=== PATIENT | female | born 1945 | race Caucasian/White ===

== ENCOUNTER 2024-06-01 17:07 | Emergency (ER) | payer MEDICARE, OTHER, SELFPAY ==
[2024-06-01 17:11] VITALS: BP 133/65
[2024-06-01 17:30] LABS: % Basophils 0.6 % (0-2); % Eosinophils 0.3 % (0-6); % Immature Granulocytes 0.3 % (0-0.5); % Monocytes 9.4 % (1.7-9.3); % Neutrophils 71.4 % (42.2-75.2); Absolute Lymphocytes 1.2 10^3/uL (1.2-3.4); Absolute Monocytes 0.6 10^3/uL (0.1-0.6); Absolute Neutrophils 4.8 10^3/uL (1.4-6.5); Hematocrit 40.5 % (37.0-47.0); Hemoglobin 13.8 g/dL (12.0-16.0); Mean Corp Hgb Conc. 34.1 g/dL (33.0-37.0); Mean Corpuscular Hgb 32.1 pg (27.0-31.0); Mean Corpuscular Volume 94.2 fL (81.0-99.0); Mean Platelet Volume 9.8 fL (7.4-10.4); Nucleated Red Blood Cells % 0 %; Platelet Count 219 10^3/uL (130-400); Red Cell Dist. Width 12.4 % (11.5-14.5); White Blood Cell Count 6.8 10^3/uL (4.8-10.8)
[2024-06-01 17:38] LABS: INR 0.99; PT 13.4 Sec (11.4-14.6)
[2024-06-01 17:43] LABS: ALT (SGPT) 20 U/L (0-35); AST (SGOT) 27 U/L (14-36); Albumin 4.3 g/dl (3.5-5.0); Alkaline Phosphatase 67 U/L (38-126); Blood Urea Nitrogen 23 mg/dl (7-17); Calcium 9.6 mg/dl (8.4-10.2); Carbon Dioxide 28 mmol/L (22-30); Chloride 103 mmol/L (98-107); Glucose 153 mg/dl (70-99); Sodium 139 mmol/L (135-145); Total Bilirubin 0.7 mg/dl (0.2-1.3); eGFR > 60.00
[2024-06-01 17:55] LABS: Troponin I < 0.012 ng/ml
[2024-06-01 18:00] VITALS: BP 97/73
[2024-06-01 18:13] LABS: TSH 1.22 uIU/ml (0.47-4.68)
[2024-06-01 19:00] VITALS: BP 115/66
[2024-06-01 20:09] LABS: NT-proBNP 81.4 pg/ml
[2024-06-01 20:29] VITALS: BP 119/67
--- NOTE | 2024-06-01 20:53 | ED.GENMED ---
History of Present Illness
General
Chief Complaint: Swelling
Source: senior living
Exam Limitations: none
Time Seen by Provider: 06/01/24 18:45
Nursing documentation reviewed up to this point in time: agreed with
History of Present Illness
History of Present Illness:
Patient to ED for evaluation of swelling to BLE. Symptoms started last week. Brought to ED via EMS for eval. No kknown history of trauma. No reported history of same.
Past History
Past History
ED Past Medical History: GERD and Other (Abdominoplasty,)
ED Past Surgical History: and Orthopedic (Spinal fusion for scoliosis)
Social History
Tobacco: Non-smoker
Alcohol: Occasional
Drug: None
Personal:
Living: with family
Employment: Employed
Family History
Family History: Negative Early CAD
Review of Systems
Review of Systems
Allergies reviewed?: Yes
All Other Systems: ROS reviewed and negative except as documented in HPI and ROS
Constitutional: Reports no symptoms
EENT: Reports no symptoms
Respiratory: Reports no symptoms
Cardiac: Reports no symptoms
ABD/GI: Reports no symptoms
: Reports no symptoms
Musculoskeletal: Reports edema (+2 edema BLE below knees to toes)
Skin: Reports no symptoms
Neurological: Reports no symptoms
Psychiatric: Reports no symptoms
Phy Exam
General Physical Exam
General Presentation: well appearing and no apparent distress
General age: appears stated age
General Skin: warm and dry
General Habitus: normal
General Mental: alert
Cardiovascular Exam
Cardiovascular Exam: regular rate/rhythm
Pulmonary Exam
Pulmonary Exam: lungs clear and no respiratory distress
Gastrointestinal Exam
Gastrointestinal Exam: non tender and soft
Musculoskeletal Exam
Musculoskeletal Exam: full ROM, neuro vasc intact and other (Swelling to BLE. No s/s infection. Neurovasc intact)
Skin Exam
Skin Exam: normal color, warm/dry and no rash
Psychiatric Exam
Psychiatric Exam: normal mood/affect
Scores
Heart Failure Risk
Heart Failure Risk Score: Not Applicable
Course
Orders/Labs/Results
Orders:
Orders
06/01/24 17:14
ECG [Electrocardiogram (*1)] Urgent
Reason for Study: Tachycardia
EKG- Treatment ONCE
06/01/24 17:22
Complete Blood Count/With Diff Urgent
Comprehensive Metabolic Panel Urgent
NT-proBNP Urgent
Comment: ADD ON
PT/INR [Prothrombin Time] Urgent
PTT Urgent
TSH Urgent
Troponin I Urgent
06/01/24 19:17
Add On- LAB Urgent
Tests Added?: BNP
06/01/24 19:18
US Periph Venous LOWER Ext Suhail Urgent
Comment:
Reason For Exam: swelling, erythema
06/01/24 20:59
Apixaban [Eliquis] 10 mg PO NOW STA
Abnormal Lab Results
06/01/24
17:22
MCH 32.1 H pg
(27.0-31.0)
Lymphocytes % 18.0 L %
(20.5-51.1)
Monocytes % 9.4 H %
(1.7-9.3)
BUN 23 H mg/dl
(7-17)
Glucose 153 H mg/dl
(70-99)
06/01/24 17:22
06/01/24 17:22
Vital Signs
Initial and Last Documented VS:
Initial Vital Signs
Temp Pulse Resp BP Pulse Ox
97.8 F 120 18 133/65 95
06/01/24 17:11 06/01/24 17:11 06/01/24 17:11 06/01/24 17:11 06/01/24 17:11
Last Documented Vital Signs
Temp Pulse Resp BP Pulse Ox
97.8 F 102 14 111/54 96
06/01/24 17:11 06/01/24 21:00 06/01/24 21:00 06/01/24 21:00 06/01/24 21:00
*Radiology
Radiology exam reviewed: radiology read reviewed
*Pulse Oximetry
Patient hypoxic: no
*Critical Care Note
Total Time (30-74mins, 75-104mins- exclusive of procedures): Not Applicable
Update Note
Update Note:
Patient to ED for eval of BLE swelling. US reveals occlusive DVT left popliteal. No DVT on right. Labs reviewed. Started on Eliquis in ED. Will discharge back to facility, close follow up with PCP. Discussed patient presentation and findings
with her son by phone. He is agreeable to plan. VSS, no respiratory concerns.
ED Attending Note
-
Portions of this chart may have been created with voice recognition software.� Occasional wrong word or��sound alike� substitutions may have occurred due to the inherent limitations of voice recognition software.
Discharge Plan
Departure
Patient Disposition: Home (Routine Discharge)
Date of Disposition: 06/01/24
Time of Disposition: 21:01
Patient with high blood pressure during this ER visit?: No
Condition: Good
Covid-19: Not Applicable
Discharge Problem:
DVT (deep venous thrombosis)
Instructions: Deep vein thrombosis - Discharge instructions
Prescriptions:
New
Eliquis DVT-PE Treat 30D Start 5 mg (74 tabs) tablets,dose pack
See Rx Instructions .ROUTE .COMPLEX Qty: 74 0RF
Rx Instructions:
orally per package directions
No Action
duloxetine 30 MG capsule,delayed release(DR/EC)
30 mg PO HS
progesterone micronized [Prometrium] 100 MG capsule
100 mg PO DAILY
oxycodone 5 MG tablet
5 mg PO BID
Estradiol
0.05 mg topical SUWE
pantoprazole 40 MG tablet,delayed release (DR/EC)
40 mg PO DAILY Qty: 10 0RF
Referrals:
Mar Wells, DO [Family Provider] - Tomorrow
Interventions
Interventions:
*Risk Screen - Suicide Last Done: 06/01/24 17:11
*General Assessment Last Done: 06/01/24 17:11
*Neglect/Abuse Screening Last Done: 06/01/24 17:11
*ED- Fall Risk Assessment Last Done: 06/01/24 21:17
*ED COVID-19 Vaccine History Last Done: 06/01/24 21:17
*Nursing Disposition Last Done: 06/01/24 22:25
ED- Cardiac Assessment Last Done: 06/01/24 17:11
ED- Pulmonary Assessment Last Done: 06/01/24 17:11
ED-Skin Assessment Last Done: 06/01/24 17:11
Discharge Date and Time
Discharge Date/Time: 06/01/24 22:28
Print Language: YI
[2024-06-01 21:00] VITALS: BP 111/54
[2024-06-01] MEDS: ELIQUIS 10 MG PO (21:08)
== END 2024-06-01 22:28 | disposition home or self-care (01) ==
LOC: EMR 17:07
PROVIDERS: EMERGENCY PHYSICIAN Emergency Medicine; FAMILY PHYSICIAN Hospitalist
DX: I82.432 Acute embolism and thrombosis of left popliteal vein (principal)
CPT/HCPCS: 99285; 80053; 83880; 84443; 84484; 85025; 85610; 85730; 93005; 93970

== ENCOUNTER 2024-06-05 11:07 | Inpatient (IN) | payer MEDICARE, OTHER, SELFPAY ==
[2024-06-04] VITALS (15 sets, daily range): BP systolic 97–130; BP diastolic 59–78; PULSE 86; O2SAT 97
--- NOTE | 2024-06-04 04:20 | ED.GENMED ---
History of Present Illness
General
Chief Complaint: Swelling
Source: patient
Exam Limitations: none
Time Seen by Provider: 06/04/24 04:06
Nursing documentation reviewed up to this point in time: agreed with
History of Present Illness
History of Present Illness:
This is a 78 y.o female with a pmh of dvt on eliquis, alzheimer's dementia, migraines who presents to the ER with concerns of left lower leg swelling. Of note, patient does have a hx of DVT in that extremity and was seen in our ER 4 days ago for
this and was started on Eliquis. Patient is a very limited historian secondary to her dementia. Patient's reportedly requested patient be reevaluated since her swelling has not improved. Patient states that she is unsure why she is here. She
denies chest pain, abdominal pain, burning with urination, extremity pain, shortness of breath. Staff does note that patient has had red rash to the right side of her body.
Past History
Past History
ED Past Medical History: GERD and Other (Abdominoplasty,)
ED Past Surgical History: and Orthopedic (Spinal fusion for scoliosis)
Social History
Tobacco: Non-smoker
Alcohol: Occasional
Drug: None
Personal:
Living: with family
Employment: Employed
Family History
Family History: Negative Early CAD
Review of Systems
Review of Systems
All Other Systems: ROS reviewed and negative except as documented in HPI and ROS
Phy Exam
Physical Exam
Physical Exam:
General: Patient is well appearing and in no acute distress; non-toxic. Vitals significant for rectal temperature of 100.6 F
Skin: Warm and erythematous rash noted to right chest wall and right abdominal wall, non-tender to palpation
Head: Normocephalic, atraumatic
Eyes: Sclera non-icteric. EOMs intact.
Cardiac: Regular rate and rhythm, no murmurs
Peripheral Vascular: Left lower extremity swelling noted, 2+ dp and pt pulses noted bilaterally
Pulm: Normal respiratory effort, no wheezes, rales, or rhonchi
Neuro: CN II-XII intact, no focal neurologic deficits.
Psychiatric: Appropriate mood and affect.
Scores
Heart Failure Risk
Heart Failure Risk Score: Not Applicable
Course
Orders/Labs/Results
Orders:
Orders
06/04/24 04:28
Straight cath- Treatment ONCE
Urinalysis Reflex To Culture Urgent
06/04/24 04:40
COVID-19 Antigen Urgent
Source: Nasal Swab
Influenza A+B Rapid Molecular Urgent
ANGY Source: Nasal Swab
Specimen Description:
06/04/24 04:49
Complete Blood Count/With Diff Urgent
Comprehensive Metabolic Panel Urgent
Creatine Phosphokinase Urgent
Comment: ADD ON
Hepatitis C Antibody Urgent
Comment: ADD ON
Lactic Acid Urgent
Blood Culture Q30M
ANGY Source: Blood/Venous
Specimen Description:
Blood Culture Q30M
ANGY Source: Blood/Venous
Specimen Description:
06/04/24 05:13
0.9% Sodium Chloride 500 ml [Nss] 500 ml IV BOLUS
06/04/24 05:57
CeFAZolin 2 GRAM [Ancef] 2 grams in 10 ml IV NOW
06/04/24 Breakfast
Cholesterol Lowering
At Your Request: Full Participation
Cholesterol Lowering: Sodium, 2 Gram
06/04/24 07:00
Flush (0.9% Sodium Chloride) [Flush (Nss)] See Dose Instructions IV PER PROTOCOL
06/04/24 07:44
Add On- LAB Routine
Tests Added?: CPK, hepC Ab
06/04/24 08:10
Haloperidol Lactate [Haldol] 0.5 mg IV NOW STA
Straight Cath As Directed
Frequency: One time now
06/04/24 08:11
CR Chest Portable - 1 View Urgent
Comment:
Reason For Exam: leukocytosis, fever
Reason Study Needs to be Portable: Other
06/04/24 08:[address] [CT Head W/o Iv Contrast] Urgent
Comment:
Reason For Exam: Eliquis, AMS
06/04/24 08:37
Admit/Transfer Patient As Directed
Co-Sign Provider:
Level of Care: Observation services
Assign to:: Medical/Surgical
Physician / Group: Hospitalist
Diagnosis: DVT
PRN Pain Medication Management As Directed
May give lesser potent ordered pain med per pt: Yes
preference::
Protocol:: Medication orders for pain may be administered in a
manner that supports deferring to patient preference
when the pt is:
- Requesting an ordered lesser potent pain medication.
Least to most potent pain medications are defined
as: acetaminophen < NSAID < tramadol < opioids
(morphine, oxycodone, hydromorphone).
- Requesting a lesser dose of the same medication IF
ORDERED.
- Requesting a less intrusive route of administration
if both routes are prescribed by the provider (PO <
IV).
06/04/24 08:39
Code Status As Directed
Resuscitation Status: Do not resuscitate
Reached after discussion with pt or family/Healthcare POA: Yes
DNR Bracelet Application ONCE
06/04/24 08:40
UA Reflex to Culture [Urinalysis Reflex To Culture] Stat
Date Specimen was Collected: 06/04/24
Time Specimen was Collected: 08:39
Urine Microscopic Reflex Cult Stat
06/04/24 08:46
Acetaminophen [Tylenol] 650 mg PO Q4HPRN PRN
Abnormal Lab Results
06/04/24 06/04/24
04:49 08:40
WBC 13.2 H 10^3/uL
(4.8-10.8)
MCH 32.2 H pg
(27.0-31.0)
Abs Immat Gran (auto) 0.1 H 10^3/uL
(0-0.05)
Absolute Neuts (auto) 11.3 H 10^3/uL
(1.4-6.5)
Absolute Lymphs (auto) 0.9 L 10^3/uL
(1.2-3.4)
Absolute Monos (auto) 0.9 H 10^3/uL
(0.1-0.6)
Neutrophils % 85.6 H %
(42.2-75.2)
Lymphocytes % 6.9 L %
(20.5-51.1)
Glucose 134 H mg/dl
(70-99)
AST 177 H U/L
(14-36)
ALT 65 H U/L
(0-35)
Urine Ketones 3+ A
(Negative)
Ur Occult Blood Reflex 4+ A
(Negative)
Urine Albumin (Reflex) 2+ A
(Neg - Trace)
06/04/24 04:49
06/04/24 04:49
Vital Signs
Initial and Last Documented VS:
Initial Vital Signs
Temp BP
98.3 F 130/78
06/04/24 00:12 06/04/24 00:12
Last Documented Vital Signs
Temp Pulse Resp BP Pulse Ox
99.5 F 97 16 119/59 98
06/04/24 05:07 06/04/24 07:06 06/04/24 08:05 06/04/24 07:06 06/04/24 07:06
MDM/Problems Addressed
Differential Diagnosis Includes:
swelling---dvt, dependent edema, cellulitis
fever--cellulitis, UTI, covid, influenza, pneumonia
MDM/Problems Addressed:
78 y.o female with a hx of alzheimers dementia presents to the ER with concerns of LLE swelling. She has a known DVT on that side and is currently being treated with eliquis. She denies any pain, increasing swelling, any change in symptoms. Pt did
have a temperature of 100.6 rectally, pt no hx of this at [facility]. Possible source being red rash noted to right side of body--will start ancef, send of blood cultures, check urine, etc. Case reviewed with attending who also evaluated rash. Will
admit for fever of unknown origin.
*Pulse Oximetry
Patient hypoxic: no
*Critical Care Note
Total Time (30-74mins, 75-104mins- exclusive of procedures): Not Applicable
Data Reviewed
Review of Other/Old Records Reveals: Records (reviewed ER physician documentation from 06/01/24)
Source: patient and records
ED Attending Note
-
Portions of this chart may have been created with voice recognition software.� Occasional wrong word or��sound alike� substitutions may have occurred due to the inherent limitations of voice recognition software.
Discharge Plan
Departure
Patient Disposition: Admit
Date of Disposition: 06/04/24
Time of Disposition: 06:04
Admit to: Med/Surg
Presentation/result/management discussed w/ accepting MD/DO: Hospitalist
Patient with high blood pressure during this ER visit?: Yes
Condition: Fair
Discharge Problem:
Fever
Prescriptions:
No Action
duloxetine 30 MG capsule,delayed release(DR/EC)
30 mg PO HS
progesterone micronized [Prometrium] 100 MG capsule
100 mg PO DAILY
oxycodone 5 MG tablet
5 mg PO BID
Estradiol
0.05 mg topical SUWE
pantoprazole 40 MG tablet,delayed release (DR/EC)
40 mg PO DAILY Qty: 10 0RF
Eliquis DVT-PE Treat 30D Start 5 mg (74 tabs) tablets,dose pack
See Rx Instructions .ROUTE .COMPLEX Qty: 74 0RF
Rx Instructions:
orally per package directions
Referrals:
Angie Beebe DO [Family Provider] -
Interventions
Interventions:
*Risk Screen - Suicide Last Done: 06/04/24 00:04
*General Assessment Last Done: 06/04/24 00:04
*Neglect/Abuse Screening Last Done: 06/04/24 00:04
*ED- Fall Risk Assessment Last Done: 06/04/24 00:58
*ED COVID-19 Vaccine History Last Done: 06/04/24 00:58
ED- Cardiac Assessment Last Done: 06/04/24 05:07
ED- Pulmonary Assessment Last Done: 06/04/24 05:07
ED-Skin Assessment Last Done: 06/04/24 02:13
Discharge Date and Time
Print Language: FRENCH
[2024-06-04 05:01] LABS: % Basophils 0.2 % (0-2); % Immature Granulocytes 0.5 % (0-0.5); % Lymphocytes 6.9 % (20.5-51.1); % Monocytes 6.8 % (1.7-9.3); % Neutrophils 85.6 % (42.2-75.2); Absolute Immature Granulocytes 0.1 10^3/uL (0-0.05); Absolute Lymphocytes 0.9 10^3/uL (1.2-3.4); Absolute Monocytes 0.9 10^3/uL (0.1-0.6); Absolute Neutrophils 11.3 10^3/uL (1.4-6.5); Hematocrit 40.3 % (37.0-47.0); Mean Corp Hgb Conc. 34.7 g/dL (33.0-37.0); Mean Corpuscular Hgb 32.2 pg (27.0-31.0); Mean Corpuscular Volume 92.6 fL (81.0-99.0); Mean Platelet Volume 9.7 fL (7.4-10.4); Nucleated Red Blood Cells % 0 %; Platelet Count 236 10^3/uL (130-400); Red Blood Cell Count 4.35 10^6/uL (4.20-5.40); White Blood Cell Count 13.2 10^3/uL (4.8-10.8)
[2024-06-04 05:15] LABS: ALT (SGPT) 65 U/L (0-35); AST (SGOT) 177 U/L (14-36); Albumin 3.8 g/dl (3.5-5.0); Alkaline Phosphatase 79 U/L (38-126); Blood Urea Nitrogen 16 mg/dl (7-17); Calcium 9.3 mg/dl (8.4-10.2); Carbon Dioxide 27 mmol/L (22-30); Chloride 103 mmol/L (98-107); Glucose 134 mg/dl (70-99); Lactic Acid 1.3 mmol/L (0.7-2.0); Potassium 3.8 mmol/L (3.5-5.1); Sodium 139 mmol/L (135-145); Total Bilirubin 1.2 mg/dl (0.2-1.3); Total Protein 6.8 g/dl (6.3-8.2); eGFR > 60.00
[2024-06-04 05:15] LABS: COVID-19 Antigen Negative (Negative)
[2024-06-04] MEDS: NSS 500 IV ×2 (05:37→23:27)
[2024-06-04] MEDS: ANCEF 10 IV (06:40)
[2024-06-04] MEDS: HALDOL 0.5 MG IV (08:22)
--- NOTE | 2024-06-04 08:43 | HPS.HSE ---
Family Physician
-
Family Physician: Angie Beebe
Chief Complaint
-
DVT
History of Present Illness
78yo F with dementia, GERD, spinal Sx @2010 from [facility] assisted living brought after her came over to help desk rep at midnight stating that patient has to be immediately seen. No additional symptoms noted. Family stated that patient has
often complained about chronic back pain and that what might concerned her , who also is styrggling with dementia. In ED found minimally elevated WBC count and concern for minor rash on trunck. Reenty diagnosed with LLE DVT, however currently
without woirsened swelling or redness on LE
As per family - patient with advanced dementia, frequenbtly was declining medicaltions in the past.
Medical History
Past Medical History
Past Medical History: Reports Other
Additional Past Medical History:
see HPI
Past Surgical History: Reports None
Social History
Unable to obtain full social history at this time due to: Dementia
Family History
Family History: Not pertinent
Allergies / Home Medications
Allergies reflects when Allergies were last updated in [facility].
Home Medications with original date entered in [facility]
Allergy/Medication List:
Allergies
Allergy/AdvReac Type Severity Reaction Status Date / Time
gabapentin [From Neurontin] Allergy hallucinati Verified 06/01/24 17:16
ons
pregabalin [From Lyrica] Allergy hallucinati Verified 06/01/24 17:16
ons
Home Medications
duloxetine 30 mg capsule,delayed release 30 mg PO HS 06/05/09
progesterone micronized 100 mg capsule (Prometrium) 100 mg PO DAILY 07/05/10
Estradiol 0.05 mg topical SUWE 12/08/18
oxycodone 5 mg tablet 5 mg PO BID 12/08/18
pantoprazole 40 mg tablet,delayed release 40 mg PO DAILY Gastrointestinal issue #10 tabs 08/06/21
apixaban 5 mg (74 tabs) tablets in a dose pack (Eliquis DVT-PE Treat 30D Start) See Rx Instructions PO .COMPLEX #74 ea 06/01/24
Review of Systems
-
Unable to obtain full review of systems at this time due to: Dementia
Physical Exam
Vital Signs
Vital Signs
Temp Pulse Resp BP Pulse Ox
99.5 F 97 16 119/59 98
06/04/24 05:07 06/04/24 07:06 06/04/24 08:05 06/04/24 07:06 06/04/24 07:06
Physical Exam
General: Well Developed, Well Nourished and No Apparent Distress
HEENT: NormoCephalic, Anicteric and Moist mucous membranes
Respiratory: Clear; No Wheezes or Rhonchi
Cardiac: S1/S2 and Regular Rhythm; No Murmur
GI: Soft, Non Tender and Non Distended
Musculoskeletal: No Clubbing, No Cyanosis and No Edema
Skin: Warm; No Rash or Jaundice
Neuro: Awake, Alert and Oriented (to herself)
Psych: Calm and Apparent Dementia
Laboratory Results
-
06/04/24 04:49
06/04/24 04:49
Laboratory Results
Lactic Acid 1.3 mmol/L (0.7-2.0) 06/04/24 04:49
Total Bilirubin 1.2 mg/dl (0.2-1.3) 06/04/24 04:49
AST 177 U/L (14-36) H 06/04/24 04:49
ALT 65 U/L (0-35) H 06/04/24 04:49
Alkaline Phosphatase 79 U/L (38-126) 06/04/24 04:49
Data Reviewed
-
Lab Data: Labs Reviewed by me
Impression/Plan
-
A/P:
#Acute DVT LLE, unprovoked
COnt Eliquis
Check Head CT - patient poor historian, unclear what bought her to the hospital, but recently started on ELiquis
With patient previously declining medications - explained to daughter that dementia might be advanced enough for consideration of hospice if patient will continue to do the same
Will defer Hematology eval to outpatient
#Leukocytosis
mild
can be 2/2 DVT
complete w/u with UA and chest XR (however no respiratory symptoms). WIll give light sedation with haldol, since patient was not compliant with RN for urine collection
#Chronic back pain with PMHx of back surgery
PT/OT
#Alzheimer dementia
not on meds
#Transaminitis
Most likely 2/2 clot
check CPK, hepC
follow LFT
US RUQ
DVT ppx- Eliquis
DNR/DNI - discussed in details with daughter over the phone
I have spent at least 77min reviewing chart, test results, communication with family and providing direct patient care
[2024-06-04 08:46] LABS: Urine Albumin 2+ (Neg - Trace); Urine Bilirubin Negative (Negative); Urine Character Clear (Clear); Urine Color Yellow; Urine Glucose Negative (Negative); Urine Ketone 3+ (Negative); Urine Leukocyte Negative (Negative); Urine Nitrite Negative (Negative); Urine Occult Blood 4+ (Negative); Urine Urobilinogen 1+ (Neg - 1+)
[2024-06-04 08:56] LABS: Urine Mucus Few
[2024-06-04 08:57] LABS: Urine Bacteria Few (Negative)
[2024-06-04] MEDS: TYLENOL 650 MG PO ×3 (09:01→23:27)
[2024-06-04 09:52] LABS: Creatine Phosphokinase 8818 U/L (30-135)
[2024-06-04] MEDS: NSS 1000 IV ×2 (10:15→21:56)
[2024-06-04] MEDS: ELIQUIS 10 MG PO ×2 (13:15→20:33)
--- NOTE | 2024-06-04 15:23 | CM ---
Initial assessment completed via phone with patient's daughterJena
WADE form explained to daughter; e-mailed copy of form to daughter @ [email or web address] as requested
Pharmacy verified: [facility] @ [address]
Family Provider verified; Dr. Wells @ [phone]; [facility] [place] [address]
Daughter reported that patient lives @ [facility] with her who also has Alzheimer
Daughter reported that her mother is confuse; incontinent, refuses assistance; only allow sporadic bathing; ambulates without a device;
participates in PT/OT when agreeable
No SNF or Home Health utilization history
Transportation: daughter reported that [facility] will provide transport back to the facility
Plan: return to [facility] when medically stable
[2024-06-04] MEDS: ROCEPHIN 1000 MG IV (16:12)
[2024-06-04] MEDS: STERILE WATER FOR INJECTION 10 ML IV (16:13)
--- NOTE | 2024-06-04 18:15 | PTCARENOTE ---
Pt transferred from ED. Pt transferred into bed, pt confused, pt refused to cooperate with orientation questions. Pt has redness on trunk and low grade fever. Pt oriented to place, call [place] within reach, bed alarm applied. Will continue with
current plan.
[2024-06-04 18:27] LABS: Hepatitis C Antibody Negative (Negative)
[2024-06-04] MEDS: VIBRAMYCIN 260 MG IV (18:31)
[2024-06-04] MEDS: LOPRESSOR 2.5 MG IV (20:21)
--- NOTE | 2024-06-04 20:23 | W.PN.UPDATE ---
Update Note
Progress Note Update
RN reported patient's HR 140's 160's, BP 104/62, 98.6 96% RA 18. EKG showed Afib with RVR.
Patient seen and evaluated, has dementia therefore unsure if she is following the questions but she is denying chest pain, shortness of breath, palpitation, pleasant and calm in bed without any distress. lungs clear, irregular elevated HR, no edema
noted
Metoprolol 2.5mg IV x1, NSS 250CC IV bolus, labs ordered.
HR remains 140's-150's BP 96/59. Cardizem 10mg IVx1,
maintained on Cardizem 10mg/hr.
lab results noted, will replete K
HR 140's BP 100/68 RR 22 96% RA damon give NSS 500 Bolus, Cardizem drip increase to 15mg/hour
HR 96-110 BP 96/57 97% RA 100.9, RR 18 will give Tylenol
on Eliquis 10mg BID for DVT.
no Hx of Afib
will consider Consult with Branch Service Leader, Echo in AM.
[2024-06-04] MEDS: NSS 250 IV (20:32)
[2024-06-04 20:35] LABS: Hematocrit 36.5 % (37.0-47.0); Hemoglobin 12.8 g/dL (12.0-16.0); Mean Corp Hgb Conc. 35.1 g/dL (33.0-37.0); Mean Corpuscular Hgb 32.2 pg (27.0-31.0); Mean Corpuscular Volume 91.9 fL (81.0-99.0); Mean Platelet Volume 9.6 fL (7.4-10.4); Platelet Count 226 10^3/uL (130-400); Red Blood Cell Count 3.97 10^6/uL (4.20-5.40); Red Cell Dist. Width 12.1 % (11.5-14.5); White Blood Cell Count 14.1 10^3/uL (4.8-10.8)
[2024-06-04 20:52] LABS: Blood Urea Nitrogen 17 mg/dl (7-17); Calcium 8.8 mg/dl (8.4-10.2); Carbon Dioxide 23 mmol/L (22-30); Chloride 103 mmol/L (98-107); Estimated Creatinine Clearance 72 ml/min; Glucose 146 mg/dl (70-99); Magnesium 1.9 mg/dl (1.6-2.3); Potassium 3.6 mmol/L (3.5-5.1); Sodium 134 mmol/L (135-145); eGFR > 60.00
[2024-06-04] MEDS: CARDIZEM 10 MG IV (20:53)
[2024-06-04 20:58] LABS: Troponin I 0.031 ng/ml
[2024-06-04 21:22] LABS: TSH 2.24 uIU/ml (0.47-4.68)
[2024-06-04] MEDS: KCL 270 MEQ IV (21:55)
[2024-06-04] MEDS: CARDIZEM 125 IV (21:59)
[2024-06-05] VITALS (10 sets, daily range): BP systolic 96–132; BP diastolic 55–74; PULSE 94–96; O2SAT 96
--- NOTE | 2024-06-05 00:58 | PTCARENOTE ---
At 07:45, [place] texted House Provider Yuniel Stallings about pt's HR= 160, BP 104/62. Pt not on tele. Per orders, placed pt on tele and obtained EKG, which showed AFib with RVR. Labs ordered and sent. IV lopressor 2.5mg given at 20:21. 250mL NSS bolus
given at 20:32. IV cardizem 10mg push administered at 20:53. Cardizem gtt started at 10mg and increased to 15mg per provider orders. KCl 40mEq started at 21:55 for K= 3.6. Rectal temp 100.9F, PO tylenol given. HR now in the low 100s. BP stable. Pt
has no complaints and denies pain, palpitations, and SOB. Will continue to monitor.
--- NOTE | 2024-06-05 04:40 | PTCARENOTE ---
Pt came out of AFib and is now in NSR 70s-80s. Provider aware.
[2024-06-05] MEDS: VIBRAMYCIN 260 MG IV ×2 (05:39→16:52)
[2024-06-05] MEDS: CARDIZEM 125 IV (06:12)
[2024-06-05 07:02] LABS: Hematocrit 34.3 % (37.0-47.0); Mean Corpuscular Hgb 32.3 pg (27.0-31.0); Mean Corpuscular Volume 92.5 fL (81.0-99.0); Mean Platelet Volume 10.5 fL (7.4-10.4); Platelet Count 188 10^3/uL (130-400); Red Blood Cell Count 3.71 10^6/uL (4.20-5.40); Red Cell Dist. Width 12.2 % (11.5-14.5); White Blood Cell Count 10.7 10^3/uL (4.8-10.8)
[2024-06-05 08:20] LABS: Creatine Phosphokinase 4801 U/L (30-135)
--- NOTE | 2024-06-05 08:23 | CON.CAR ---
Addendum entered and electronically signed by Pablito Elizondo MD 06/05/24 13:37:
I saw and examined the patient.
The SHOE SINGER's note was reviewed and I agree with the note.
Comment: Asymptomatic PAF with RVR, several hours perhaps in duration. Already on anticoagulation for DVT. Would use AFib dosing after the acute DVT treatment and plan intermodal customer service anticoagulation as long as she tolerates it well. Will add some rate
control with metoprolol. Will check echo. TSH fine.
Original Note:
Consultation
Consultation Request
Date/Time Consultation Requested: 06/05/2024 07:15
Date/Time Consultation Performed: 06/05/2024 08:20
Requesting Provider: ALEXANDER Quintanilla
Performing Provider: ALEXANDER Urbina for Dr. Elizondo
Reason for Consultation: Atrial fibrillation with RVR
Medical History
-
Chief Complaint: Back pain
History of Present Illness:
Chelsea Beverly is a 78-year-old female with spinal surgery (2010), GERD and Alzheimer's dementia who presented to the ER with a chief complaint of LE swelling. She is oriented to herself. She does not have any complaints. She does not remember
coming in to the ER. She was recently diagnosed with a DVT and started in apixaban 06/01/2024. Cardiology was consulted for atrial fibrillation with RVR. She does not remember having any symptoms. She was started on a diltiazem gtt and is back in
sinus rhythm.
Past Medical History
Past Medical History: GERD and Other (Alzheimer's disease, DVT)
Past Surgical History: Orthopedic
Social History
Tobacco: Non-Smoker
Alcohol: None
Drug: None
Personal:
Living: [facility] ([facility])
Employment: Retired
Family History
Family History: Unable to Obtain
Allergies / Home Medications
Allergy/AdvReac Type Severity Reaction Status Date / Time
gabapentin [From Neurontin] Allergy hallucinati Verified 06/01/24 17:16
ons
pregabalin [From Lyrica] Allergy hallucinati Verified 06/01/24 17:16
ons
�Medication �Instructions �Recorded �Confirmed �Type
apixaban 5 mg (74 tabs) tablets in See Rx Instructions PO .COMPLEX 06/01/24 06/04/24 Rx
a dose pack (EliSmartSynch DVT-PE Treat #74 ea
30D Start)
Review of Systems
-
History Source: Patient
All other systems: Negative unless noted
Constitutional: No Symptoms
EENT: No Symptoms
Respiratory: No Symptoms
Cardiac: No Symptoms
Abdomen/GI: No Symptoms
: No Symptoms
Musculoskeletal: No Symptoms
Skin: No Symptoms
Neurological: No Symptoms
Endocrine: No Symptoms
Hematologic/Lymphatic: No Symptoms
Physical Exam
Vital Signs
Temp Pulse Resp BP Pulse Ox
97.9 F 77 16 112/59 94
06/05/24 07:47 06/05/24 07:47 06/05/24 07:47 06/05/24 07:47 06/05/24 07:47
Lab Results
06/05/24 06:24
06/04/24 20:29
Troponin I 0.031 ng/ml 06/04/24 20:30
Physical Exam
General: Well Developed, Well Nourished, No Apparent Distress and Comfortable
HEENT: Normocephalic, Anicteric and Moist Mucous Membranes
Respiratory: Clear and Non Labored Respirations
Cardiac: S1/S2, Regular Rhythm and Peripheral Edema (+2 BL LE)
Breast: Deferred by me
GI: Soft, Non Tender, Non Distended and Normal Bowel Sounds
Rectal: Deferred by Provider
Genito-urinary: No Costovertebral Tender
Musculoskeletal: No Clubbing and No Cyanosis
Skin: Warm and Dry
Neuro: Alert
Hematologic/Lymphatic: No Lymphadenopathy
Psych: Calm
Impression / Plan
-
I/P: 78F with spinal surgery (2010), GERD, Alzheimer's dementia & recent diagnosis of DVT (06/01/2024) presented with LE swelling
Atrial fibrillation with right ventricular response
-Back in sinus rhythm
-Stop diltiazem gtt, start metoprolol succinate 25mg daily
-Oral Anticoagulation: Apixaban, currently on DVT dosing, after she completes 10mg dosing 5mg BID
-[id number]: score at least 4 (HTN, age 75 or more, female gender) perhaps higher with DVT
-TSH within normal limit
-Echocardiogram
DVT
- Acute occlusive DVT in left popliteal vein by ultrasound 06/01/2024
Alzheimer's dementia, chronic
Back pain, chronic, currently denies
Data Reviewed
-
EKG: Report Reviewed by me (Atrial fibrillation with rapid ventricular response, rate 162)
Labs: Labs Reviewed by me
Old Records: Reviewed
[2024-06-05] MEDS: DESENEX/MITRAZOL/ZEASORB TOPICAL (10:03)
--- NOTE | 2024-06-05 11:03 | W.PN.HOSP.TC ---
Today's Communication/Plan
-
see PN
Assessment / Plan
Assessment / Plan
78yo F with dementia, GERD, spinal Sx @2010 from [facility] assisted living brought after her came over to front desk clerk at midnight stating that patient has to be immediately seen. In hospital found mild LLL pneumonia and developed new onset
Afib
A/P:
#RLL CAP with unspecified organism
mild changes
Rocephin/DOxy
#New onset Afib with RVR
Cardizem drip
Cardiology to acheve control
already on Eliquis for DVT
Echo
telemetry
#Rhabdomyolysis
cont IVF, follow CPK
#Acute DVT LLE, unprovoked
COnt Eliquis
Check Head CT - patient poor historian, unclear what bought her to the hospital, but recently started on ELiquis
With patient previously declining medications - explained to daughter that dementia might be advanced enough for consideration of hospice if patient will continue to do the same
Will defer Hematology eval to outpatient
#Chronic back pain with PMHx of back surgery
PT/OT
#Alzheimer dementia
not on meds
#Transaminitis
Most likely 2/2 clot
#Hypothyroidism
TSH WNL
DVT ppx- Eliquis
DNR/DNI - discussed in details with daughter over the phone
I have spent at least 57min reviewing chart, test results, communication with family and providing direct patient care
Anticipated Discharge: > 48 hours
Subjective/Interval History
-
Date of Service: June 05, 2024
Objective Data
-
Labs:
Laboratory Results
06/05/24
06:24
WBC 10.7
Hgb 12.0
Hct 34.3 L
Plt Count 188
Vital Signs:
Vital Signs
Temp Pulse Resp BP Pulse Ox
97.9 F 77 16 112/59 94
06/05/24 07:47 06/05/24 07:47 06/05/24 07:47 06/05/24 07:47 06/05/24 07:47
I&O
06/04/24 06/05/24 06/06/24
06:59 06:59 06:59
Intake Total 1989
Balance 1989
Review of Systems
-
Unable to obtain full review of systems at this time due to: Dementia
History Source: Patient
Physical Exam
-
General: No Apparent Distress
HEENT: Normocephalic
GI: Soft, Nontender and Nondistended
Musculoskeletal: No Clubbing, No Cyanosis and No Edema
Neuro: Awake, Alert, Oriented and AO x 3
Psych: Calm
[2024-06-05] MEDS: ELIQUIS 10 MG PO ×2 (11:13→20:57)
[2024-06-05] MEDS: PROTONIX 40 MG PO (11:13)
[2024-06-05] MEDS: NSS 1000 IV (11:15)
[2024-06-05] MEDS: TOPROL XL 25 MG PO (11:15)
--- NOTE | 2024-06-05 15:33 | CM ---
Chart reviewed patient was admitted from [facility], patient may need skilled or LTC at discharge, will need to follow progress.
Plan; To follow with patient progress.
[2024-06-05] MEDS: STERILE WATER FOR INJECTION 10 ML IV (15:55)
[2024-06-05] MEDS: ROCEPHIN 1000 MG IV (15:55)
[2024-06-05] MEDS: DESENEX/MITRAZOL/ZEASORB 1 APPLIC TOPICAL (20:57)
[2024-06-05] MEDS: TYLENOL 650 MG PO (22:17)
[2024-06-06] MEDS: NSS 1000 IV (01:54)
[2024-06-06 03:46] VITALS: BP 114/61
[2024-06-06] MEDS: VIBRAMYCIN 260 MG IV ×2 (05:57→17:03)
[2024-06-06 07:16] VITALS: BP 126/70
[2024-06-06 08:19] LABS: ALT (SGPT) 77 U/L (0-35); AST (SGOT) 93 U/L (14-36); Albumin 2.6 g/dl (3.5-5.0); Alkaline Phosphatase 94 U/L (38-126); Blood Urea Nitrogen 12 mg/dl (7-17); Calcium 8.3 mg/dl (8.4-10.2); Carbon Dioxide 25 mmol/L (22-30); Chloride 111 mmol/L (98-107); Creatine Phosphokinase 1597 U/L (30-135); Estimated Creatinine Clearance 72 ml/min; Glucose 93 mg/dl (70-99); Potassium 3.3 mmol/L (3.5-5.1); Sodium 140 mmol/L (135-145); Total Bilirubin 0.7 mg/dl (0.2-1.3); eGFR > 60.00
--- NOTE | 2024-06-06 08:32 | W.PN.CD ---
Today's Communication / Plan
-
- Continue metoprolol succinate 25mg daily; unable to increase secondary to blood pressure limitations.
- Oral Anticoagulation: Apixaban, currently on DVT dosing--afterwards, transition to 5 mg BID.
- Will need apixaban indefinitely.
- No further recommendations at this time; outpatient follow-up with Cardiology.
Impression / Plan
-
I/P: 78F with spinal surgery (2010), GERD, Alzheimer's dementia & recent diagnosis of DVT (06/01/2024) presented with LE swelling; found to have new onset atrial fibrillation.
Paroxysmal atrial fibrillation:
-Back in sinus rhythm
- Continue metoprolol succinate 25mg daily; unable to increase secondary to blood pressure limitations.
- Oral Anticoagulation: Apixaban, currently on DVT dosing--afterwards, transition to 5 mg BID.
- Will need apixaban indefinitely.
-[id number]: score at least 4 (HTN, age 75 or more, female gender) perhaps higher with DVT
-TSH within normal limit
-Echocardiogram EF 65-70%, moderate MR.
DVT
- Acute occlusive DVT in left popliteal vein by ultrasound 06/01/2024
-On Eliquis; management as per primary team.
Moderate MR:
- Will continue to monitor as outpatient; likely conservative management overall.
Alzheimer's dementia, chronic
Back pain, chronic, currently denies
Physical Exam
Vital Signs/Labs
Vital Signs
Temp Pulse Resp BP Pulse Ox
97.9 F 89 18 126/70 96
06/06/24 07:16 06/06/24 07:16 06/06/24 07:16 06/06/24 07:16 06/06/24 07:16
06/06/24 07:03
Magnesium 1.9 mg/dl (1.6-2.3) 06/04/24 20:29
TSH 2.24 uIU/ml (0.47-4.68) 06/04/24 20:30
LAB Results
06/04/24
20:30
Troponin I 0.031
Physical Exam
Constitutional: No acute distress and Comfortable
EENT: Anicteric
Cardiovascular: Rhythm & rate is regular, Pedal edema present (trace), Systolic murmur present (/) and S1S2 is normal
Respiratory: Respiratory effort normal and Lungs clear to auscul.
GI: Soft
Neuro/Psych: Alert
Other: Skin (Warm, dry)
Data Reviewed
-
Date of Service: June 06, 2024
EKG: Tracing Personally Visualized and interpreted (Telemetry: Sinus rhythm)
Echo: Report Reviewed by me (EF 65-70%, moderate MR)
Labs: Labs Reviewed by me
[2024-06-06 08:56] LABS: % Basophils 0.5 % (0-2); % Eosinophils 1.1 % (0-6); % Immature Granulocytes 0.6 % (0-0.5); % Lymphocytes 10.6 % (20.5-51.1); % Monocytes 8.4 % (1.7-9.3); % Neutrophils 78.8 % (42.2-75.2); Absolute Eosinophils 0.1 10^3/uL (0-0.7); Absolute Immature Granulocytes 0.1 10^3/uL (0-0.05); Absolute Lymphocytes 0.9 10^3/uL (1.2-3.4); Absolute Monocytes 0.7 10^3/uL (0.1-0.6); Absolute Neutrophils 6.8 10^3/uL (1.4-6.5); Hematocrit 34.4 % (37.0-47.0); Mean Corp Hgb Conc. 34.9 g/dL (33.0-37.0); Mean Corpuscular Hgb 32.6 pg (27.0-31.0); Mean Corpuscular Volume 93.5 fL (81.0-99.0); Mean Platelet Volume 10.2 fL (7.4-10.4); Nucleated Red Blood Cells % 0 %; Platelet Count 228 10^3/uL (130-400); Red Blood Cell Count 3.68 10^6/uL (4.20-5.40); Red Cell Dist. Width 12.4 % (11.5-14.5); White Blood Cell Count 8.6 10^3/uL (4.8-10.8)
[2024-06-06] MEDS: DESENEX/MITRAZOL/ZEASORB 1 APPLIC TOPICAL ×2 (09:11→21:04)
[2024-06-06] MEDS: KCL 40 MEQ PO (09:15)
[2024-06-06] MEDS: PROTONIX 40 MG PO (09:15)
[2024-06-06] MEDS: ELIQUIS 10 MG PO ×2 (09:16→21:03)
[2024-06-06] MEDS: TYLENOL 650 MG PO (09:16)
[2024-06-06] MEDS: TOPROL XL 25 MG PO (09:17)
[2024-06-06 09:33] LABS: Magnesium 1.9 mg/dl (1.6-2.3)
--- NOTE | 2024-06-06 11:10 | W.PN.HOSP.TC ---
Today's Communication/Plan
-
pebnding afebrile for d/c
Assessment / Plan
Assessment / Plan
78yo F with dementia, GERD, spinal Sx @2010 from [facility] assisted living brought after her came over to lead front end developer at midnight stating that patient has to be immediately seen. In hospital found mild LLL pneumonia and developed new onset
Afib
A/P:
#RLL CAP with unspecified organism
mild changes
Rocephin/DOxy
Pending defervescence for switch to oral Abx
#New onset Afib with RVR
Cardizem drip
Cardiology to achieve control: toprol 25mg advised
already on Eliquis for DVT
Echo: Normal biventricular size and systolic function without regional wall motion, abnormality. LVEF 65-70%, mild MR, moderate TR
telemetry
#Rhabdomyolysis
resolved
#Acute DVT LLE, unprovoked
COnt Eliquis
Head CT unremarkable for acute findings
With patient previously declining medications - explained to daughter that dementia might be advanced enough for consideration of hospice if patient will continue to do the same
Will defer Hematology eval to outpatient
#Chronic back pain with PMHx of back surgery
PT/OT
#Alzheimer dementia
not on meds
#Transaminitis
Most likely 2/2 clot
improving
#Hypothyroidism
TSH WNL
#Hypokalemia
replete
DVT ppx- Eliquis
DNR/DNI - discussed in details with daughter over the phone
I have spent at least 57min reviewing chart, test results, communication with family and providing direct patient care
Anticipated Discharge: Within 24 hours
Subjective/Interval History
-
Date of Service: June 06, 2024
Objective Data
-
Labs:
Laboratory Results
06/06/24
07:03
WBC 8.6
Hgb 12.0
Hct 34.4 L
Plt Count 228 D
Sodium 140
Potassium 3.3 L
Chloride 111 H
Carbon Dioxide 25
BUN 12
Creatinine 0.5 L
Glucose 93
Calcium 8.3 L
Total Bilirubin 0.7
AST 93 H
ALT 77 H
Alkaline Phosphatase 94
Vital Signs:
Vital Signs
Temp Pulse Resp BP Pulse Ox
97.9 F 89 18 126/70 96
06/06/24 07:16 06/06/24 07:16 06/06/24 07:16 06/06/24 07:16 06/06/24 07:16
I&O
06/05/24 06/06/24 06/07/24
06:59 06:59 06:59
Intake Total 1989 1435 / 1435
Balance 1989 1435 / 1435
Review of Systems
-
History Source: Patient
All other systems: Reviewed and negative
Physical Exam
-
General: No Apparent Distress and Comfortable
Respiratory: Clear to Auscultation
GI: Soft, Nontender and Nondistended
Musculoskeletal: No Clubbing, No Cyanosis and No Edema
Neuro: Awake, Alert and Oriented
Psych: Calm and Apparent Dementia
[2024-06-06 11:37] VITALS: BP 99/57
[2024-06-06 15:39] VITALS: BP 101/41
[2024-06-06] MEDS: STERILE WATER FOR INJECTION 10 ML IV (17:03)
[2024-06-06] MEDS: ROCEPHIN 1000 MG IV (17:03)
[2024-06-06 22:45] VITALS: BP 124/76
[2024-06-07] MEDS: VIBRAMYCIN 260 MG IV ×2 (06:19→17:46)
[2024-06-07 07:24] VITALS: BP 129/77
[2024-06-07] MEDS: DESENEX/MITRAZOL/ZEASORB 1 APPLIC TOPICAL ×2 (08:04→20:20)
[2024-06-07] MEDS: PROTONIX 40 MG PO (08:05)
[2024-06-07] MEDS: ELIQUIS 10 MG PO ×2 (08:05→20:20)
[2024-06-07] MEDS: TOPROL XL 25 MG PO (08:05)
--- NOTE | 2024-06-07 10:44 | W.PN.HOSP.TC ---
Today's Communication/Plan
-
dc
Assessment / Plan
Assessment / Plan
78yo F with dementia, GERD, spinal Sx @2010 from [facility] assisted living brought after her came over to front end manager at midnight stating that patient has to be immediately seen. In hospital found mild LLL pneumonia and developed new onset
Afib. Cardiology to achieve control: toprol 25mg advised. Eliquis to cont - switch to 5mg BID on 06/08/24. Afebrile >24h before d/c, so reasonable for outpatient mgmt with 5 more days of Doxy+Cefdinir. Medically stable for d/c to assisted living.
A/P:
#RLL CAP with unspecified organism
mild changes
Rocephin/DOxy
Pending defervescence for switch to oral Abx
#New onset Afib with RVR
Cardizem drip
Cardiology to achieve control: toprol 25mg advised
already on Eliquis for DVT
Echo: Normal biventricular size and systolic function without regional wall motion, abnormality. LVEF 65-70%, mild MR, moderate TR
telemetry
#Rhabdomyolysis
resolved
#Acute DVT LLE, unprovoked with pain in LLE
COnt Eliquis
Head CT unremarkable for acute findings
With patient previously declining medications - explained to daughter that dementia might be advanced enough for consideration of hospice if patient will continue to do the same
Will defer Hematology eval to outpatient
#Chronic back pain with PMHx of back surgery
PT/OT - rehab needed
#Alzheimer dementia
not on meds
#Transaminitis
Most likely 2/2 clot
improving
#Hypothyroidism
TSH WNL
#Hypokalemia
replete
DVT ppx- Eliquis
DNR/DNI - discussed in details with daughter over the phone
I have spent at least 37min reviewing chart, test results, communication with family and providing direct patient care
Anticipated Discharge: Today
Subjective/Interval History
-
Date of Service: June 07, 2024
Objective Data
-
Vital Signs:
Vital Signs
Temp Pulse Resp BP Pulse Ox
98.3 F 84 20 129/77 97
06/07/24 07:24 06/07/24 07:24 06/07/24 07:24 06/07/24 07:24 06/07/24 08:51
I&O
06/06/24 06/07/24 06/08/24
06:59 06:59 06:59
Intake Total 1435 / 1435 1445 / 1445
Balance 1435 / 1435 1445 / 1445
Review of Systems
-
History Source: Patient
All other systems: Reviewed and negative
Physical Exam
-
General: Comfortable
HEENT: Normocephalic
Cardiac: Regular Rhythm
GI: Soft, Nontender and Nondistended
Neuro: Awake, Alert, Oriented and AO x 3
Psych: Calm
--- NOTE | 2024-06-07 10:50 | W.DCSUMMARY ---
Discharge Summary
Discharge Data
Date of Admission: 06/05/24
Date of Discharge: 06/07/24
-
Pending Results: No
Hospital Course
78yo F with dementia, GERD, spinal Sx @2010 from [facility] assisted living brought after her came over to front maker at midnight stating that patient has to be immediately seen. In hospital found mild LLL pneumonia and developed new onset
Afib. Cardiology to achieve control: toprol 25mg advised. Eliquis to cont - switch to 5mg BID on 06/08/24. Afebrile >24h before d/c, so reasonable for outpatient mgmt with 5 more days of Doxy+Cefdinir. Medically stable for d/c to assisted living.
I have spent at least 57min reviewing chart, test results, communication with family and providing direct patient care
Patient was managed for:
#RLL CAP with unspecified organism
#New onset Afib with RVR
#Rhabdomyolysis
#Acute DVT LLE, unprovoked
#Chronic back pain with PMHx of back surgery
#Alzheimer dementia
#Transaminitis
#Hypothyroidism
#Hypokalemia
Discharge Plan
-
Patient Disposition: Assisted Living
Discharge Diagnosis/Procedures: RLL pneumonia
Diet: Regular
Others Tests: Repeat chest XR in 2-3 weeks upon discharge with family doctor
Referrals:
Alicia Sampson CRNP [Specified Professional Personl] - 06/13/24 8:40 am
Angie Beebe DO [Family Provider] -
Additional Discharge Medication Instructions: Take Eliquis 10mg at PM on 06/07/24, start Eliquis 5mg BID on 06/08/24
Prescriptions:
New
doxycycline hyclate 100 mg capsule
100 mg PO BID Qty: 10 0RF
cefdinir 300 mg capsule
300 mg PO BID Qty: 10 0RF
acetaminophen 325 mg Tablet
650 mg PO Q4HPRN PRN (Reason: mild pain/MCCLELLAN/temp> 100.4F) Qty: 90 0RF
metoprolol succinate 25 mg Tablet Extended Release 24 Hr
25 mg PO DAILY Qty: 30 0RF
Changed
Eliquis DVT-PE Treat 30D Start 5 mg (74 tabs) tablets,dose pack
See Rx Instructions .ROUTE .COMPLEX Qty: 74 0RF
Rx Instructions:
orally per package directions
initiated 06/01/24 - switch to 5mg BID on 06/08/24
Discharge Orders:
Discharge Patient (As Directed); Ordered 06/07/24
Ordered By: Richard Kent
Discharge Date and Time
Print Language: INDONESIAN
--- NOTE | 2024-06-07 10:55 | WOUNDNOTE ---
WOC RN note: Patient admitted with DVT. Patient admitted from [facility].
See H&P for complete history.
PMH: dementia, GERD, spinal surgery 2011, back pain, recent LLE DVT (Eliquis).
Wound Location and type/assessment: Patient has a L medial heel cloudy serous filled blister (stage 2 pressure injury). Patient admitted with R flank linear red hurley. Coccyx crease with mild MASD.
Appetite: on regular diet.
Pressure redistribution devices in place: Versacare air bed. She cannot turn self in bed. She likes to cross her legs.
Plan: Skin prep and foam dressing applied to heels. Lilly care given. Patient turned to R semi side lying position with help from PCT Tammie. Heels off bed with air chair cushion. t/c SPD and ordered TruVue lite heel relief boots. Discussed with
PCT.
Will confirm orders with hospitalist and update nurse.
Care plan to be updated and will follow as needed.
Note to case management of equipment requested for discharge: air mattress.
Recommend follow up at wound care center upon discharge.
--- NOTE | 2024-06-07 11:00 | WOUNDNOTE ---
WOC RN note: Patient admitted with DVT. [place] [facility]
See H&P for complete history.
PMH: dementia, GERD, spinal surgery 2011, back pain, recent LLE DVT (Eliquis).
Wound Location and type/assessment: Patient has a L medial heel cloudy serous filled blister (stage 2 pressure injury). Patient admitted with R flank linear red hurley. Coccyx crease with mild MASD.
Appetite: on regular diet.
Pressure redistribution devices in place: Versacare air bed. She cannot turn self in bed. She likes to cross her legs.
Plan: Skin prep and foam dressing applied to heels. Lilly care given. Patient turned to R semi side lying position with help from PCT Carissa. Heels off bed with air chair cushion. t/c SPD and ordered TruVue lite heel relief boots. Discussed with
PCT.
Will confirm orders with hospitalist and update nurse.
Care plan to be updated and will follow as needed.
Note to case management of equipment requested for discharge: air mattress.
Recommend follow up at wound care center upon discharge.
--- NOTE | 2024-06-07 11:05 | W.PN.UPDATE ---
Update Note
Progress Note Update
Patient ambulatory status significantly decreased, due to dementia - hard to assess for exact symptoms, but seems to complain of LLE pain particularly in foot and on ROM - in hip. No numbness or paresthesia reported. Previously pain was contibuted
to DVT. WIll r/o acute compression Fx of the vertebra and L hip Fx with XR prior to d/c. DOrsalis pedis pulse well felt on L, no skin discoloration noted
--- NOTE | 2024-06-07 11:15 | WOUNDNOTE ---
WOC RN note: spoke with MATTHEW Lozoya re: recommend an air mattress at SNF/rehab. Patient has a heel blister and is high risk for a pressure injury.
--- NOTE | 2024-06-07 11:25 | WOUNDNOTE ---
[facility] RN note: Patient seen around 11am. Patient admitted with DVT. Patient admitted from [facility].
See H&P for complete history.
PMH: dementia, GERD, spinal surgery 2011, back pain, recent LLE DVT (Eliquis).
Wound Location and type/assessment: Patient has a L medial heel cloudy serous filled blister (stage 2 pressure injury). Patient admitted with R flank linear red hurley. Coccyx crease with mild MASD.
Appetite: on regular diet.
Pressure redistribution devices in place: Versacare air bed. She cannot turn self in bed. She likes to cross her legs.
Plan: Skin prep and foam dressing applied to heels. Lilly care given. Patient turned to R semi side lying position with help from PCT Carissa. Heels off bed with air chair cushion. t/c SPD and ordered TruVue lite heel relief boots. Discussed with
PCT.
Updated re: appearance of L heel blister and confirmed orders with Dr. Kent and updated RN Lexy.
Care plan to be updated and will follow as needed.
Note to case management of equipment requested for discharge: air mattress.
Recommend follow up at wound care center upon discharge.
--- NOTE | 2024-06-07 11:49 | PN.CDI ---
CDI
- -
CDI:
Physician Documentation Request
Admit Date: 06/05/24 11:07
Dear Doctor Yoli,
Clinical Indicators:
Patient admitted with acute DVT and pneumonia;
06/07 Skin Wound Management Flowsheet: Left Medial Heel Stage 2 Pressure Injury
06/07 WOC RN note, 'L medial heel cloudy serous filled blister (stage 2 pressure injury)...recommend follow up at wound center upon discharge.'
Physician documentation of the type and location of wounds is required for compliant documentation. Based on the above clinical findings and your assessment, please provide the following in your progress note:
1. Location of the ulcer/wound, including laterality.
2. Type (etiology) of ulcer/wound:
- Pressure (decubitus) ulcer
- Other, please specify
3. For a non-pressure ulcer, please indicate the depth/severity:
- Limited to the breakdown of skin
- With fat layer exposed
- With necrosis of muscle
- With necrosis of bone
- Other
- Unable to determine
4. If a pressure ulcer, please also include the stage* of the ulcer:
- Stage 1 - Skin intact, non-blanchable redness
- Stage 2 - Partial thickness loss of dermis, includes intact or open blister
- Stage 3 - Full thickness tissue not including bone, tendon or muscle
- Stage 4 - Full thickness tissue loss, including exposed bone, tendon or muscle
- Unstageable - Full thickness loss in which the base of the ulcer is covered by slough (yellow, tomas, hollins, green or brown) and/or eschar (tomas, brown or black) in the wound bed.
- Unable to determine
Use of terms such as suspected, likely, concern for, or probable (associated with a specific diagnosis that is being evaluated, monitored, or treated as if it exists) are acceptable and can be coded in the inpatient setting, when documented at the
time of discharge.
Thank you,
FERN Vela RN
CDI Specialist
available via tiger text
Please use your independent medical judgment in providing your response.
*Source: National Pressure Ulcer Advisory Panel (NPUAP)
--- NOTE | 2024-06-07 11:59 | PN.CDI ---
CDI
- -
CDI:
Physician Documentation Request
Admit Date: 06/05/24 11:07
Dear Doctor Yoli,
Clinical Indicators:
Patient admitted with acute DVT and pneumonia.
PMH includes Alzheimer dementia
06/04 H & P, 'WIll give light sedation with haldol, since patient was not compliant with RN for urine collection'
06/04 Haldol 0.5mg IV x 1.
06/04 (20:00) Nursing assessment: 'Anxiety with care'
06/06 (10:13) Nursing assessment: 'Anxious'
Please clarify any if there are any associated manifestations of the Alzheimer dementia:
Dementia with anxiety
Dementia with agitation
Dementia without associated manifestations
Other, please specify
Use of terms such as suspected, likely, concern for, or probable (associated with a specific diagnosis that is being evaluated, monitored, or treated as if it exists) are acceptable and can be coded in the inpatient setting, when documented at the
time of discharge.
Thank you,
FERN Vela RN
CDI Specialist
available via tiger text
Please use your independent medical judgment in providing your response.
[2024-06-07] MEDS: TYLENOL 650 MG PO (13:21)
[2024-06-07 15:32] VITALS: BP 112/69
--- NOTE | 2024-06-07 15:48 | CM ---
Patient stable for d/c per hospitalist. Therapy recommending skilled rehab.
Spoke w/ [facility] staff, shared that patient is max assist x2, facility shared patient will need to go to rehab first before returning
Spoke w/ patient's daughter, Jena, discussed w/ her rehab needs and [facility] unable to accept patient back at her current level. Jena agreeable to rehab, did not identify any specific facilities. CM sent multiple referrals in [facility] for
review.
Updated hospitalist
Plan: SNF; pending accepting facility
--- NOTE | 2024-06-07 15:56 | WOUNDNOTE ---
t/c Spoke with patient's daughter Belkys re: patient's L heel blister and off loading measure with soft heel relief boots. t/c [address], spoke with Janie who stated patient has the TruVue lite boots.
[2024-06-07 16:07] VITALS: BP 122/62; PULSE 94
[2024-06-07] MEDS: ROCEPHIN 1000 MG IV (16:37)
[2024-06-07] MEDS: STERILE WATER FOR INJECTION 10 ML IV (16:37)
[2024-06-07 23:20] VITALS: BP 119/66
[2024-06-08] MEDS: VIBRAMYCIN 260 MG IV (05:07)
[2024-06-08 07:00] VITALS: BP 116/70
[2024-06-08] MEDS: DESENEX/MITRAZOL/ZEASORB 1 APPLIC TOPICAL (09:59)
[2024-06-08] MEDS: PROTONIX 40 MG PO (10:00)
[2024-06-08] MEDS: TOPROL XL 25 MG PO (10:00)
[2024-06-08] MEDS: TYLENOL 650 MG PO (10:00)
[2024-06-08] MEDS: ELIQUIS 10 MG PO (10:01)
--- NOTE | 2024-06-08 10:25 | W.PN.HOSP.TC ---
Today's Communication/Plan
-
DC
Assessment / Plan
Assessment / Plan
78yo F with dementia, GERD, spinal Sx @2010 from [facility] assisted living brought after her came over to front end manager at midnight stating that patient has to be immediately seen. In hospital found mild LLL pneumonia and developed new onset
Afib. Cardiology to achieve control: toprol 25mg advised. Eliquis to cont - switch to 5mg BID on 06/08/24. Afebrile >24h before d/c, so reasonable for outpatient mgmt with 5 more days of Doxy+Cefdinir. No acute findings on lumbar and L hip XR.
Medically stable for d/c to rehab
A/P:
#RLL CAP with unspecified organism
mild changes
Rocephin/DOxy
Reached defervescence for switch to oral Abx
#New onset Afib with RVR
Cardizem drip
Cardiology to achieve control: toprol 25mg advised
already on Eliquis for DVT
Echo: Normal biventricular size and systolic function without regional wall motion, abnormality. LVEF 65-70%, mild MR, moderate TR
telemetry
#Rhabdomyolysis
resolved
#Acute DVT LLE, unprovoked with pain in LLE
COnt Eliquis
Head CT unremarkable for acute findings
With patient previously declining medications - explained to daughter that dementia might be advanced enough for consideration of hospice if patient will continue to do the same
Will defer Hematology eval to outpatient
#Chronic back pain with PMHx of back surgery
XR lumbar without acute findings
L hip w/o Fx
PT/OT - rehab needed
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
cont meds
#Left Medial Heel Stage 2 Pressure Injury
Would care
#Transaminitis
Most likely 2/2 clot
improving
#Hypothyroidism
TSH WNL
#Hypokalemia
replete
DVT ppx- Eliquis
DNR/DNI - discussed in details with daughter over the phone
I have spent at least 37min reviewing chart, test results, communication with family and providing direct patient care
Anticipated Discharge: Today
Subjective/Interval History
-
Date of Service: June 08, 2024
Objective Data
-
Vital Signs:
Vital Signs
Temp Pulse Resp BP Pulse Ox
98.8 F 88 17 116/70 95
06/08/24 07:00 06/08/24 07:00 06/08/24 07:00 06/08/24 07:00 06/08/24 07:00
I&O
06/07/24 06/08/24 06/09/24
06:59 06:59 06:59
Intake Total 1445 / 1445 1330 / 1330
Balance 1445 / 1445 1330 / 1330
Review of Systems
-
History Source: Patient
All other systems: Reviewed and negative
Physical Exam
-
General: No Apparent Distress
HEENT: Normocephalic
Respiratory: Clear to Auscultation
Cardiac: Regular Rhythm
GI: Soft, Nontender and Nondistended
Musculoskeletal: No Clubbing, No Cyanosis and No Edema
Neuro: Awake, Alert and Oriented
Psych: Calm and Apparent Dementia
--- NOTE | 2024-06-08 10:27 | CM ---
CM spoke w/ Essie/[facility] admissions, confirmed bed can be offered to patient today
Spoke w/ patient's daughter, Jena, regarding [facility] acceptance for today, agreeable for patient to transport to SNF
Updated hospitalist, agreeable to d/c today
IMM verbally reviewed w/ daughter, declined copy, copy on chart
Ambulance transport, forms on chart
[facility]
Report: [phone]

Plan: D/c to [facility] today. Ambulance transport
--- NOTE | 2024-06-08 10:29 | W.DCSUMMARY ---
Discharge Summary
Discharge Data
Date of Admission: 06/05/24
Date of Discharge: 06/08/24
-
Pending Results: No
Hospital Course
78yo F with dementia, GERD, spinal Sx @2010 from [facility] assisted living brought after her came over to front end software engineer at midnight stating that patient has to be immediately seen. In hospital found mild LLL pneumonia and developed new onset
Afib. Cardiology to achieve control: toprol 25mg advised. Eliquis to cont - switch to 5mg BID on 06/08/24. Afebrile >24h before d/c, so reasonable for outpatient mgmt with 5 more days of Doxy+Cefdinir. No acute findings on lumbar and L hip XR.
Medically stable for d/c to rehab
I have spent at least 37min reviewing chart, test results, communication with family and providing direct patient care
Patient was managed for:
#RLL CAP with unspecified organism
#New onset Afib with RVR
#Rhabdomyolysis
#Acute DVT LLE, unprovoked with pain in LLE
#Chronic back pain with PMHx of back surgery with ambulatory deficiency
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
#Left Medial Heel Stage 2 Pressure Injury
#Transaminitis
#Hypothyroidism
#Hypokalemia
Discharge Plan
-
Patient Disposition: Assisted Living
Discharge Diagnosis/Procedures: RLL pneumonia
Diet: Regular
Others Tests: Repeat chest XR in 2-3 weeks upon discharge with family doctor
Other Services: PT
Activity Restrictions/Additional Instructions:
Wound Care Instructions
L medial heel blister-swab Betadine (allow to dry), cover with foam dressing or adaptic and abd pad secured with Kerlix, change daily.
Miconazole powder and barrier ointment to kendra skin bid.
Air mattress.
Soft heel relief boots as tolerated (i.e. TruVue lite boots). Off load heels with pillow and/or air chair cushion while boots off.
Pressure redistributing chair cushion (i.e. Air chair cushion).
Follow up with wound landcare officer or at wound care center call for an appointment.
Referrals:
Alicia Sampson CRNP [Specified Professional Personl] - 06/13/24 8:40 am
Angie Beebe DO [Family Provider] -
Additional Discharge Medication Instructions: start Eliquis 5mg BID on 06/08/24
Prescriptions:
New
doxycycline hyclate 100 mg capsule
100 mg PO BID Qty: 10 0RF
cefdinir 300 mg capsule
300 mg PO BID Qty: 10 0RF
acetaminophen 325 mg Tablet
650 mg PO Q4HPRN PRN (Reason: mild pain/MCCLELLAN/temp> 100.4F) Qty: 90 0RF
metoprolol succinate 25 mg Tablet Extended Release 24 Hr
25 mg PO DAILY Qty: 30 0RF
Changed
Eliquis DVT-PE Treat 30D Start 5 mg (74 tabs) tablets,dose pack
See Rx Instructions .ROUTE .COMPLEX Qty: 74 0RF
Rx Instructions:
orally per package directions
initiated 06/01/24 - switch to 5mg BID on 06/08/24
Discharge Orders:
Discharge Patient (As Directed); Ordered 06/08/24
Ordered By: Richard Kent
Discharge Date and Time
Print Language: CITIZ[place]
[2024-06-08 14:00] VITALS: BP 110/60
[2024-06-08] MEDS: ROCEPHIN 1000 MG IV (14:03)
[2024-06-08] MEDS: STERILE WATER FOR INJECTION 10 ML IV (14:03)
== END 2024-06-08 14:56 | DRG 299 ==
LOC: 4 WEST ACU 11:07
PROVIDERS: Nurse Practitioner Gerontology; Physician Assistant; ADMITTING PHYSICIAN Internal Medicine; CONSULT PHYSICIAN Internal Medicine Cardiovascular Disease; EMERGENCY PHYSICIAN Student in an Organized Health Care Education/Training Program; FAMILY PHYSICIAN Family Medicine
DX: I82.402 Acute embolism and thrombosis of unspecified deep veins of left lower extremity (principal); J18.9 Pneumonia, unspecified organism; M62.82 Rhabdomyolysis; G30.8 Other Alzheimer's disease; F02.80 Dementia in other diseases classified elsewhere, unspecified severity, without behavioral disturbance, psychotic disturbance, mood disturbance, and anxiety; Z66 Do not resuscitate; I48.0 Paroxysmal atrial fibrillation; Z79.01 Long term (current) use of anticoagulants; E03.9 Hypothyroidism, unspecified; E87.6 Hypokalemia; M54.9 Dorsalgia, unspecified; G89.29 Other chronic pain; L89.622 Pressure ulcer of left heel, stage 2; Z11.52 Encounter for screening for COVID-19
CPT/HCPCS: 70450; 71045; 72110; 73501; 76700; 80048; 80053; 81003; 81015; 82550; 83605; 83735; 84443; 84484; 85025; 85027; 86803; 87040; 87070; 87502; 87811; 93005; 93306; 96361; 96374; 96375; 97163; 97167; 97530; 97535; 99285

== ENCOUNTER → 2024-06-11 12:41 | Outpatient (REF) | payer OTHER, MEDICARE, SELFPAY ==
[2024-06-11 13:24] LABS: Blood Urea Nitrogen 10 mg/dl (7-17); Calcium 8.8 mg/dl (8.4-10.2); Carbon Dioxide 27 mmol/L (22-30); Chloride 103 mmol/L (98-107); Glucose 96 mg/dl (70-99); Potassium 4.3 mmol/L (3.5-5.1); Sodium 137 mmol/L (135-145); eGFR > 60.00
[2024-06-11 13:33] LABS: % Basophils 1.1 % (0-2); % Eosinophils 1.7 % (0-6); % Immature Granulocytes 2.3 % (0-0.5); % Lymphocytes 16.5 % (20.5-51.1); % Monocytes 10.7 % (1.7-9.3); % Neutrophils 67.7 % (42.2-75.2); Absolute Basophils 0.1 10^3/uL (0-0.2); Absolute Eosinophils 0.1 10^3/uL (0-0.7); Absolute Immature Granulocytes 0.2 10^3/uL (0-0.05); Absolute Lymphocytes 1.2 10^3/uL (1.2-3.4); Absolute Monocytes 0.8 10^3/uL (0.1-0.6); Absolute Neutrophils 4.8 10^3/uL (1.4-6.5); Hematocrit 37.7 % (37.0-47.0); Hemoglobin 12.6 g/dL (12.0-16.0); Mean Corp Hgb Conc. 33.4 g/dL (33.0-37.0); Mean Corpuscular Hgb 31.8 pg (27.0-31.0); Mean Corpuscular Volume 95.2 fL (81.0-99.0); Mean Platelet Volume 9.9 fL (7.4-10.4); Nucleated Red Blood Cells % 0 %; Platelet Count 405 10^3/uL (130-400); Red Blood Cell Count 3.96 10^6/uL (4.20-5.40); Red Cell Dist. Width 12.3 % (11.5-14.5)
== END ==
LOC: OLABP 12:41
PROVIDERS: ATTENDING PHYSICIAN Family Medicine
DX: J18.1 Lobar pneumonia, unspecified organism (principal); I48.0 Paroxysmal atrial fibrillation; L89.622 Pressure ulcer of left heel, stage 2; I82.402 Acute embolism and thrombosis of unspecified deep veins of left lower extremity; E03.9 Hypothyroidism, unspecified; F03.90 Unspecified dementia, unspecified severity, without behavioral disturbance, psychotic disturbance, mood disturbance, and anxiety; E87.6 Hypokalemia; K21.9 Gastro-esophageal reflux disease without esophagitis; M54.9 Dorsalgia, unspecified; R74.01 Elevation of levels of liver transaminase levels
CPT/HCPCS: 36415; 80048; 85025

== ENCOUNTER → 2024-08-02 11:14 | Outpatient (REF) | payer MEDICARE, OTHER, SELFPAY ==
[2024-08-02 12:04] LABS: Hematocrit 41.7 % (37.0-47.0); Hemoglobin 13.6 g/dL (12.0-16.0); Mean Corp Hgb Conc. 32.6 g/dL (33.0-37.0); Mean Corpuscular Hgb 30.5 pg (27.0-31.0); Mean Corpuscular Volume 93.5 fL (81.0-99.0); Mean Platelet Volume 10.6 fL (7.4-10.4); Platelet Count 402 10^3/uL (130-400); Red Blood Cell Count 4.46 10^6/uL (4.20-5.40); Red Cell Dist. Width 12.8 % (11.5-14.5)
[2024-08-02 12:59] LABS: ALT (SGPT) 27 U/L (0-35); AST (SGOT) 29 U/L (14-36); Albumin 3.5 g/dl (3.5-5.0); Alkaline Phosphatase 84 U/L (38-126); Blood Urea Nitrogen 23 mg/dl (7-17); Calcium 9.5 mg/dl (8.4-10.2); Carbon Dioxide 29 mmol/L (22-30); Chloride 104 mmol/L (98-107); Glucose 108 mg/dl (70-99); Magnesium 2.2 mg/dl (1.6-2.3); Potassium 4.1 mmol/L (3.5-5.1); Sodium 140 mmol/L (135-145); Total Bilirubin 0.8 mg/dl (0.2-1.3); Total Protein 6.5 g/dl (6.3-8.2); eGFR > 60.00
[2024-08-02 13:50] LABS: Free T4 1.97 ng/dl (0.78-2.19)
[2024-08-02 14:04] LABS: TSH 1.46 uIU/ml (0.47-4.68)
[2024-08-02 14:40] LABS: Folate 6.2 ng/ml (2.76-20); Vitamin B12 527 pg/ml (239-931)
== END ==
LOC: OLABPG 11:14
PROVIDERS: ATTENDING PHYSICIAN Nurse Practitioner Gerontology
DX: R63.4 Abnormal weight loss (principal); R13.10 Dysphagia, unspecified; E03.9 Hypothyroidism, unspecified; Z79.01 Long term (current) use of anticoagulants; F41.9 Anxiety disorder, unspecified; I82.402 Acute embolism and thrombosis of unspecified deep veins of left lower extremity; E87.6 Hypokalemia; F03.90 Unspecified dementia, unspecified severity, without behavioral disturbance, psychotic disturbance, mood disturbance, and anxiety
CPT/HCPCS: 36415; 80053; 82607; 82746; 83735; 84439; 84443; 85027